=== PATIENT | male | born 1980 | race African-American/Black ===

== ENCOUNTER 2020-06-06 16:36 | Emergency (ER) | payer BC, OTHER ==
[~2020-06-06] VITALS: Ht 177.8 cm; Wt 97.0 kg
[2020-06-06 17:08] VITALS: BP 119/83
== END 2020-06-06 17:51 | disposition left against medical advice (07) ==
LOC: ER 16:36
DX: M79.675 Pain in left toe(s) (principal); Z53.21 Procedure and treatment not carried out due to patient leaving prior to being seen by health care provider